=== PATIENT | female | born 1995 | race Caucasian/White ===

== ENCOUNTER 2018-06-17 20:32 | Emergency (ER) | payer SELFPAY ==
[2018-06-17 21:27] LABS: Urine Blood NEGATIVE (NEG); Urine Glucose NEGATIVE (NEG); Urine Protein 2+ (NEG); Urine Specific Gravity 1.015 (1.005-1.030)
[2018-06-17] MEDS ORDERED: IBUPROFEN 400 MG TAB ONE (21:40)
[2018-06-17 21:47] LABS: Absolute Lymphocytes (CBC) 0.5 K/uL (0.7-4.9); Absolute Monocytes 0.4 K/uL (0.1-1.3); Absolute Neutrophil 3.8 K/uL (1.8-8.0); Basophils % 0.5 % (0-1.3); Eosinophils % 0.7 % (0-4.4); Hematocrit 35.6 % (36.0-45.0); Lymphocytes % 10.6 % (15.3-44.8); MPV 8.3 fL (7.6-11.3); Monocytes % 8.5 % (3.3-12.3); RBC Red Blood Cell Count 4.65 M/uL (3.86-4.86)
[2018-06-17 21:47] LABS: Urine Appearance CLEAR; Urine Bilirubin NEGATIVE (NEG); Urine Blood NEGATIVE (NEG); Urine Color YELLOW; Urine Glucose NEGATIVE (NEG); Urine Protein 1+ (NEG); Urine Specific Gravity 1.025 (1.005-1.030); Urine Urobilinogen 0.2 mg/dL (0.2-1.0)
[2018-06-17 22:08] LABS: Urine Bacteria <20 /HPF (<20); Urine Microscopic Reflex ORDER UMIC; Urine RBC NONE SEEN /HPF (NONE SEEN)
[2018-06-17 22:09] LABS: Urine Culture Reflex Order NOT NEEDED; Urine Mucus 2+ /HPF (NONE SEEN)
--- NOTE | 2018-06-17 22:45 | ER ---
Nurse's Notes [facility] Name: Pamela Conway Age: 23 yrs Sex: Female : 1995 Arrival Date: 06/17/2018 Time: 20:33 Bed 24 Private MD: Diagnosis: Influenza A Presentation: 06/17 20:45 Presenting complaint: Patient states: headache, fever, cough X1 day. tylenol at 1700, ak1 no motrin. Transition of care: patient was not received from another setting of care. Onset of symptoms was June 16, 2018. Risk Assessment: Do you want to hurt yourself or someone else? Patient reports no desire to harm self or others. Initial Sepsis Screen: Does the patient meet any 2 criteria? No. Patient's initial sepsis screen is negative. Does the patient have a suspected source of infection? No. Patient's initial sepsis screen is negative. Care prior to arrival: None. 20:45 Method Of Arrival: Ambulatory ak1 20:45 Acuity: CYRUS 4 ak1 Triage Assessment: 20:46 General: Appears uncomfortable, ill, Behavior is calm, cooperative. Neuro: Level of ak1 Consciousness is awake, alert, obeys commands, Oriented to person, place, time, situation, Rapid Extractor Operator are equal bilaterally Moves all extremities. Gait is steady, Speech is normal. 20:47 Headache History: The patient has had previous headaches and this one is similar to ak1 previous episodes. Pain: Pain currently is 7 out of 10 on a pain scale. Pain began 1 day ago. Also complains of photophobia, sleeplessness. EENT: Reports nasal congestion. Cardiovascular: Rhythm is sinus tachycardia. Respiratory: Reports cough that is non-productive. GI: No signs and/or symptoms were reported involving the gastrointestinal system. : No signs and/or symptoms were reported regarding the genitourinary system. Derm: Parent/caregiver reports the patient having fever. Musculoskeletal: No signs and/or symptoms reported regarding the musculoskeletal system. 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 - Social history:: Smoking status: Patient/guardian denies using tobacco. - Ebola Screening: : No symptoms or risks identified at this time. Screenin:11 Abuse screen: Denies threats or abuse. Denies injuries from another. Nutritional aj1 screening: No deficits noted. Tuberculosis screening: No symptoms or risk factors identified. 23:05 Fall Risk None identified. aj1 Assessment: 21:08 General: Appears in no apparent distress. uncomfortable, ill, Behavior is calm, aj1 cooperative, appropriate for age. Pain: Complains of pain in face Pain does not radiate. Pain currently is 7 out of 10 on a pain scale. Neuro: Level of Consciousness is awake, alert, obeys commands, Oriented to person, place, time, situation, Reports headache. Cardiovascular: Heart tones S1 S2 present Patient's skin is warm and dry. Rhythm is sinus tachycardia. Respiratory: Reports cough that is non-productive, Airway is patent Respiratory effort is even, unlabored, Respiratory pattern is regular, symmetrical, Breath sounds with wheezes in left posterior lower lobe and right posterior lower lobe the patient has mild shortness of breath. GI: No signs and/or symptoms were reported involving the gastrointestinal system. : No signs and/or symptoms were reported regarding the genitourinary system. Derm: No signs and/or symptoms reported regarding the dermatologic system. Skin is pink, warm \T\ dry. normal. Musculoskeletal: No signs and/or symptoms reported regarding the musculoskeletal system. Circulation, motion, and sensation intact. 22:05 Reassessment: Patient appears in no apparent distress at this time. No changes from aj1 previously documented assessment. Patient and/or family updated on plan of care and expected duration. Pain level reassessed. Patient is alert, oriented x 3, equal unlabored respirations, skin warm/dry/pink. 23:06 Reassessment: Patient appears in no apparent distress at this time. No changes from aj1 previously documented assessment. Patient and/or family updated on plan of care and expected duration. Pain level reassessed. Patient is alert, oriented x 3, equal unlabored respirations, skin warm/dry/pink. Vital Signs: 20:46 BP 97 / 60; Pulse 135; Resp 20; Temp 102.4(O); Pulse Ox 98% on R/A; Weight 65.77 kg ak1 (R); Height 5 ft. 7 in. (170.18 cm) (R); Pain 7/10; 21:01 Pulse 115; Resp 15; Pulse Ox 100% on R/A; aj1 21:08 BP 124 / 76; aj1 22:05 BP 102 / 79; Pulse 122; Resp 19; Pulse Ox 99% on R/A; aj1 23:05 BP 112 / 73; Pulse 106; Resp 18; Temp 101.2; Pulse Ox 99% on R/A; aj1 20:46 Body Mass Index 22.71 (65.77 kg, 170.18 cm) ak1 ED Course: 20:33 Patient arrived in ED. am2 20:46 Triage completed. ak1 20:46 Arm band placed on Patient placed in an exam room, on a stretcher, Patient notified of ak1 wait time. 20:47 Patient has correct armband on for positive identification. ak1 20:52 Moris Montana MD is Attending Physician. pkl 21:01 Joan Hill RN is Primary Nurse. aj1 21:11 tar chaser on. Pulse ox on. NIBP on. aj1 21:11 No provider procedures requiring assistance completed. aj1 21:35 Inserted saline lock: 22 gauge in right antecubital area, using aseptic technique. Blood collected. 21:43 Initial lab(s) drawn, by pa, sent to lab. 21:45 Flu and/or RSV swab sent to lab. Strep swab sent to lab. gm 23:05 IV discontinued, intact, bleeding controlled, No redness/swelling at site. Pressure aj1 dressing applied. Administered Medications: 21:34 Drug: Motrin 400 mg Route: PO; aj1 23:04 Follow up: Response: No adverse reaction aj1 23:04 Drug: Tamiflu 75 mg Route: PO; aj1 23:04 Follow up: Response: No adverse reaction aj1 Outcome: 22:44 Discharge ordered by . pksajan 23:06 Discharged to home ambulatory. aj1 23:06 Condition: good 23:06 Discharge instructions given to patient, Instructed on discharge instructions, follow up and referral plans. medication usage, Demonstrated understanding of instructions, follow-up care, medications, Prescriptions given X 1. 23:06 Patient left the ED. aj1 Signatures: Joan Hill RN RN [facility] Moris Montana MD MD pkl Krenek, Amber, RN RN ak Cecilia Chauhan am2 Carol, Anabela gm
--- NOTE | 2018-06-17 22:45 | EDPHYS ---
Physician Documentation [facility] Name: Pamela Conway Age: 23 yrs Sex: Female : 1995 Arrival Date: 06/17/2018 Time: 20:33 Bed 24 Private MD: ED Physician Moris Montana HPI: 06/17 21:23 This 23 yrs old Female presents to ER via Ambulatory with complaints of pkl Fever, Asthma Exacerbation, Cough, Headache. 21:23 The patient reports fever, with an emergency department temperature of 102.4 degrees pkl Fahrenheit. Onset: The symptoms/episode began/occurred last night. Associated signs and symptoms: Pertinent positives: cough, with yellow sputum, headache, sore throat, bobyaches. 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 - Social history:: Smoking status: Patient/guardian denies using tobacco. - Ebola Screening: : No symptoms or risks identified at this time. ROS: 21:23 Eyes: Negative for injury, pain, redness, and discharge, ENT: Negative for injury, pkl pain, and discharge, Neck: Negative for injury, pain, and swelling, Cardiovascular: Negative for chest pain, palpitations, and edema. 21:23 Respiratory: Positive for cough, with yellow sputum. 21:23 Abdomen/GI: Negative for abdominal pain, nausea, vomiting, and diarrhea. 21:23 Back: Negative for acute changes. 21:23 : Negative for urinary symptoms. 21:23 MS/extremity: Negative for acute changes. 21:23 Skin: Negative for rash. 21:23 Neuro: Negative for altered mental status. Exam: 21:23 Head/Face: Normocephalic, atraumatic. Eyes: Pupils equal round and reactive to light, pkl extra-ocular motions intact. Lids and lashes normal. Conjunctiva and sclera are non-icteric and not injected. Cornea within normal limits. Periorbital areas with no swelling, redness, or edema. ENT: Nares patent. No nasal discharge, no septal abnormalities noted. Tympanic membranes are normal and external auditory canals are clear. Oropharynx with no redness, swelling, or masses, exudates, or evidence of obstruction, uvula midline. Mucous membranes moist. Neck: Trachea midline, no thyromegaly or masses palpated, and no cervical lymphadenopathy. Supple, full range of motion without nuchal rigidity, or vertebral point tenderness. No Meningismus. Chest/axilla: Normal chest wall appearance and motion. Nontender with no deformity. No lesions are appreciated. Cardiovascular: Regular rate and rhythm with a normal S1 and S2. No gallops, murmurs, or rubs. Normal PMI, no JVD. No pulse deficits. Respiratory: Lungs have equal breath sounds bilaterally, clear to auscultation and percussion. No rales, rhonchi or wheezes noted. No increased work of breathing, no retractions or nasal flaring. Abdomen/GI: Soft, non-tender, with normal bowel sounds. No distension or tympany. No guarding or rebound. No evidence of tenderness throughout. Back: No spinal tenderness. No costovertebral tenderness. Full range of motion. Skin: Warm, dry with normal turgor. Normal color with no rashes, no lesions, and no evidence of cellulitis. MS/ Extremity: Pulses equal, no cyanosis. Neurovascular intact. Full, normal range of motion. Neuro: Awake and alert, GCS 15, oriented to person, place, time, and situation. Cranial nerves II-XII grossly intact. Motor strength 5/5 in all extremities. Sensory grossly intact. Cerebellar exam normal. Normal gait. Vital Signs: 20:46 BP 97 / 60; Pulse 135; Resp 20; Temp 102.4(O); Pulse Ox 98% on R/A; Weight 65.77 kg ak1 (R); Height 5 ft. 7 in. (170.18 cm) (R); Pain 7/10; 21:01 Pulse 115; Resp 15; Pulse Ox 100% on R/A; aj1 21:08 BP 124 / 76; aj1 22:05 BP 102 / 79; Pulse 122; Resp 19; Pulse Ox 99% on R/A; aj1 23:05 BP 112 / 73; Pulse 106; Resp 18; Temp 101.2; Pulse Ox 99% on R/A; aj1 20:46 Body Mass Index 22.71 (65.77 kg, 170.18 cm) ak1 MDM: 20:52 Patient medically screened. pkl 22:43 Data reviewed: vital signs, nurses notes, lab test result(s). pkl 06/17 21:04 Order name: Urine Dipstick--Ancillary (enter results); Complete Time: 22:40 mw2 06/17 21:04 Order name: Urine --Ancillary (enter results); Complete Time: 22:40 mw2 06/17 21:22 Order name: CBC with Diff; Complete Time: 22:40 pkl 06/17 21:22 Order name: Flu; Complete Time: 22:40 pkl 06/17 21:22 Order name: Strep; Complete Time: 22:40 pkl 06/17 21:22 Order name: UA; Complete Time: 22:40 pkl 06/17 22:11 Order name: Throat Culture EDMS 06/17 22:12 Order name: Urine Microscopic Only EDMS Administered Medications: 21:34 Drug: Motrin 400 mg Route: PO; aj 23:04 Follow up: Response: No adverse reaction aj 23:04 Drug: Tamiflu 75 mg Route: PO; aj1 23:04 Follow up: Response: No adverse reaction aj1 Disposition: 06/17/18 22:44 Discharged to Home. Impression: Influenza A. - Condition is Stable. - Prescriptions for Tamiflu 75 mg Oral Capsule - take 1 tablet by ORAL route every 12 hours for 5 days; 10 tablet. - Medication Reconciliation Form, Thank You Letter, Antibiotic Education, Prescription Opioid Use form. - Follow up: Private Physician; When: 2 - 3 days; Reason: Re-evaluation by your physician. - Problem is new. - Symptoms have improved. Signatures: Dispatcher [employer] EDJoan Oviedo RN RN aj1 Moris Montana MD MD pkl Nara Peters RN RN ak1 Corrections: (The following items were deleted from the chart) 23:06 22:44 06/17/2018 22:44 Discharged to Home. Impression: Influenza A. Condition is aj1 Stable. Forms are Medication Reconciliation Form, Thank You Letter, Antibiotic Education, Prescription Opioid Use. Follow up: Private Physician; When: 2 - 3 days; Reason: Re-evaluation by your physician. Problem is new. Symptoms have improved. pkl
[2018-06-17] MEDS ORDERED: OSELTAMIVIR 75 MG CAP ONE (23:09)
== END 2018-06-17 23:06 | disposition home or self-care (01) ==
LOC: ER 20:32
DX: J09.X2 Influenza due to identified novel influenza A virus with other respiratory manifestations (principal)
CPT/HCPCS: 36415; 81003; 81015; 81025; 85025; 87070; 87081; 87804; 99284

== ENCOUNTER 2023-12-09 05:18 | Emergency (ER) | payer SELFPAY ==
--- OUTSIDE RECORDS SUMMARY | 2023-12-09 05:22 | XMS REPORT | Continuity of Care Document ---
Author Name Unknown Address [address] [facility] [address] [place] [address] [facility] thconnect Address [address] [facility] [address] [place] [address] Care Team Providers Care Sap Bw Architect Name Role Phone Ruben Mendez Bernabe Primary Care Physician [phone] DANDRE SHAFFER Attending Clinician Unavailable Dandre Shaffer MD Attending Clinician Larisa Webb Attending Clinician + LARISA STATON Attending Clinician Unavail able Doctor Unassigned, [place] Attending Clinician U OSCAR [place] Attending Clinician UnavailOscar Serrano Attending Clinician [phone] Payers Payer Name Policy Type Policy Number Effective Date Expirati on Date Source [facility]izz[facility] [id number] 2020 00[facility]00[facility]00 [facility] [id number] 2020 00:00:00 Problems Condition Name Condition Details Condition Category Status Onset Date Resolution Date Last Treatment Date Treating Clinician Comments Source Other general counseling and advice for contracept yen management Other general counseling and advice for contracept yen management Disease Active 3-08 00:00: 00 [facility] Nausea and vomiting during prior to 22 weeks gestation Nausea and vomiting during prior to 22 weeks gestation Disease Active 8-03 00:00: 00 [facility] Rubella non-immune status, antepartum Rubella non-immune status, antepartum Disease Active 12-21 00:00: 00 Overview: Formattin g of this note might be different from the original. Address in [facility]part[facility] m. [facility] Maternal varicella, non-immune Maternal varicella, non-immune Disease Active 12-21 00:00: 00 Overview: Formattin g of this note might be different from the original. Address in [facility] Supervisio n of high risk in first trimester Supervisio n of high risk in first trimester Disease Active 12-20 00:00: 00 [facility] Multiparit y Multiparit y Disease Active 12-20 00:00: 00 [facility] Overweight (BMI 25.0-29.9) Overweight (BMI 25.0-29.9) Disease Active 12-20 00:00: 00 [facility] History of multiple miscarriag es History of multiple miscarriag es Disease Active 12-20 00:00: 00 [facility] in first trimester with history of ectopic in first trimester with history of ectopic Disease Active 12-20 00:00: 00 [facility] S/P removal of right ovary S/P removal of right ovary Disease Active 12-20 00:00: 00 [facility] History of asthma History of asthma Disease Active 12-20 00:00: 00 [facility] History of section History of section Disease Active 12-20 00:00: 00 [facility] Allergies, Adverse Reactions, Alerts Allergy Name Allergy Type Status Severity Reaction(s) Onset Date Inactive Date Treating Clinician Comments Source hydrocod one DA Active [place] 2018-06 00:00: 00 [facility] acetamin ophen DA Active [place] 2018-06 00:00: 00 [facility] No Known Allergie s DA Active U 2018-06 0 00:00: 00 [facility] HYDROCOD ONE-ACET AMINOPHE N DRUG Active N/V 2017-06 00:00: 00 [facility] Hydrocod one-Acet aminophe n Propensi ty to adverse reaction s Active Nausea and/or Vomiting 2017-06 00:00: 00 [facility] No Known Allergie s DA Active U 2017-06 00:00: 00 [facility] Social History Social Habit Start Date Stop Date Quantity Comments Source [facility] Exposure to SARS-CoV-2 (event) 2022-08-30 00:00:00 2022-09-09 02:50:00 Not sure [facility] History of Social function 2022-08-22 00:00:00 2022-08-22 00:00:00 [facility] Tobacco use and exposure 2020-12-20 00:00:00 2020-12-20 00:00:00 Smokeless tobacco non-user [facility] Alcohol intake 2020-12-20 00:00:00 2020-12-20 00:00:00 Ex-drinker (finding) [facility] Sex Assigned At 1995 00:00:00 1995 00:00:00 [facility] Smoking Status Start Date Stop Date Source Never smoked tobacco [facility] Medications Ordered Medication Name Filled Medication Name Start Date Stop Date Current Medication? Ordering Clinician Indication Dosage Frequency Signature (SIG) Comments Components Source ondansetron (ZOFRAN-ODT ) disintegrat ing tablet 4 mg 09-09 09:45: 00 09-09 08:56 :00 No 4mg 4 mg, Oral, ONCE, 1 dose, On 09/09/22 at 0445, Routine [facility] levoFLOXaci n (LEVAQUIN) tablet 500 mg 09-09 09:00: 00 09-09 08:53 :00 No 500mg 500 mg, Oral, ONCE, 1 dose, On 09/09/22 at 0400, NEL
Re ason for Anti-Infec tive: Documented Infection< br>Documen manuela Infection Site: Urine
D uration of Therapy: Other (see Comments) [facility] phenazopyri dine (PYRIDIUM) tablet 200 mg 09-09 09:00: 00 09-09 08:05 :00 No 200mg 200 mg, Oral, ONCE, 1 dose, On 09/09/22 at 0400, Routine [facility] levoFLOXaci n (LEVAQUIN) 500 mg tablet 09-09 00:00: 00 Yes [id number] 500mg Take 1 tablet by mouth every 24 (twenty-fo ur) hours. [facility] phenazopyri dine 200 mg tablet 09-09 00:00: 00 Yes [id number] 200mg Take 1 tablet by mouth in the morning and 1 tablet at noon and 1 tablet in the evening. [facility] fluconazole (DIFLUCAN) 150 mg tablet 2020-06 0 00:00: 00 03-23 04:59 :00 No [id number] 150mg Take 1 tablet by mouth once now for 1 dose. [facility] vit 33-iron-fol ic-dha (SELECT-OB + DHA) 29 mg iron-1 mg -250 mg combo pack 01-17 00:00: 00 08-22 00:00 :00 No [id number] 1{packe t} Take 1 Packet by mouth daily. [facility] doxylamine- pyridoxine, vit B6, (DICLEGIS) 10-10 mg per tablet 01-17 00:00: 00 08-22 00:00 :00 No [id number] 2{tbl} Take 2 tablets by mouth at bedtime. [facility] Vital Signs Vital Name Observation Time Observation Value Comments S ource Systolic blood pressure 2022-09-09 07:49:00 133 mm[Hg] [facility] Diastolic blood pressure 2022-09-09 07:49:00 73 mm[Hg] [facility] Heart rate 2022-09-09 07:49:00 73 /min [facility] Body temperature 2022-09-09 07:49:00 36.89 [place] [facility] Respiratory rate 2022-09-09 07:49:00 16 /min [facility] Body height 2022-09-09 07:49:00 170.2 cm [facility] Body weight 2022-09-09 07:49:00 65.772 kg [facility] BMI 2022-09-09 07:49:00 22.71 kg/m2 [facility] Oxygen saturation in Arterial blood by Pulse oximetry 2022-09-09 07:49:00 99 /min [facility] Systolic blood pressure 2022-08-22 14:22:00 117 mm[Hg] [facility] Diastolic blood pressure 2022-08-22 14:22:00 75 mm[Hg] [facility] Heart rate 2022-08-22 14:22:00 70 /min [facility] Body temperature 2022-08-22 14:22:00 37 [place] [facility] Respiratory rate 2022-08-22 14:22:00 18 /min [facility] Body height 2022-08-22 14:22:00 170.2 cm [facility] Body weight 2022-08-22 14:22:00 69.31 kg [facility] BMI 2022-08-22 14:22:00 23.93 kg/m2 [facility] Procedures Procedure Date / Time Performed Performing Clinicia n Source POCT TEST 2022-09-09 08:02:00 Dandre Shaffer [facility] URINALYSIS 2022-09-09 07:54:00 Dandre Shaffer [facility] NOTICE OF PRIVACY PRACTICES 2022-09-09 07:45:26 Doctor Unassigned, [place] [facility] CONSENT/REFUSAL FOR DIAGNOSIS AND TREATMENT 2022-09-09 07:44:33 Doctor Unassigned, [place] [facility] POCT TEST 2022-08-22 14:28:00 Joni Staton [facility] ASSIGNMENT OF BENEFITS 2022-08-22 13:49:15 Docto r Unassigned, [place] [facility] Encounters Start Date/Time End Date/Time Encounter Type Admission Type Attending [facility] Care Facility Care Department Encounter ID Source 2022-09-09 02:55:00 2022-09-09 03:58:00 Emergency X JJ SHAFFERCLEO [facility] [[email or web address] ERT [id number] [facility] 2022-09-09 02:55:00 2022-09-09 03:58:00 Emergency Cassius Shaffertheodore S [facility] 1.840.114 350.1.13.10 4.2.7.2.686 [id number] [facility] 2022-08-22 08:00:00 2022-08-22 09:18:10 Office Visit Larisa Staton [facility] [[email or web address]] INTERPRETER AND TRANSLATOR [facility] 1.840.114 350.1.13.10 4.2.7.2.686 [id number] [facility] 2022-08-22 08:00:00 2022-08-22 09:18:10 Outpatient R LARISA STATON [facility] [id number] [facility] 2022-08-22 00:00:00 2022-08-22 00:00:00 Orders Only Doctor Unassigned, [place] [facility] 1.84.114 350.1.13.10 4.2.7.2.686 [id number] [facility] 2022-08-15 00:00:00 2022-08-15 00:00:00 Telephone Larisa Staton [facility] [[email or web address] INTERPRETER AND TRANSLATOR [facility] & CHILD [facility] 1.840.114 350.1.13.10 4.2.7.2.686 [id number] [facility] 2021-03-23 00:00:00 2021-03-23 00:00:00 Patient Secure Msg Larisa Staton Natalia [facility] [[email or web address]] INTERPRETER AND TRANSLATOR [facility] & CHILD [facility] 1.2840.114 350.1.13.10 4.2.7.2.686 [id number] [facility] 2021-03-22 00:00:00 2021-03-22 00:00:00 Telephone Brionna Larisa Fisher [facility] [[email or web address]] INTERPRETER AND TRANSLATOR [facility] 1.20.114 350.1.13.10 4.2.7.2.686 [id number] [facility] 2021 09:45:00 2021 09:45:00 Outpatient R LARISA STATON [facility] [id number] [facility] 2021 09:04:41 2021 09:19:41 Office Visit HaroonevonLarisa blair [facility] [[email or web address]] INTERPRETER AND TRANSLATOR [facility] CHILD [facility] 1.2.114 350.1.13.10 4.2.7.2.686 [id number] [facility] 2021-02-14 08:15:00 2021-02-14 08:15:00 Outpatient R OSCAR WOODS [facility] [id number] [facility] 2021-02-06 15:00:00 2021-02-06 15:00:00 Outpatient P [facility] [id number] [facility] 2021-01-17 08:09:32 2021-01-17 08:24:32 Routine Visit Oscar Woods [facility] [[email or web address]] INTERPRETER AND TRANSLATOR [facility] & CHILD [facility] 1.840.114 350.1.13.10 4.2.7.2.686 [id number] [facility] 2021-01-17 08:15:00 2021-01-17 08:15:00 Outpatient OSCAR BEE [facility] [id number] [facility] 2020-12-28 00:00:00 2020-12-28 00:00:00 Patient Secure Msg Robert Woodsmarie Arturo [facility] [[email or web address]] INTERPRETER AND TRANSLATOR [facility]NAL & CHILD [facility] 1.2.840.114 350.1.13.10 4.2.7.2.686 [id number] [facility] 2020-12-20 09:28:58 2020-12-20 10:42:35 Initial Visit Oscar Woods [facility] [[email or web address]] INTERPRETER AND TRANSLATOR [facility] & CHILD [facility] 1.2.840.114 350.1.13.10 4.2.7.2.686 [id number] [facility] 2020-12-20 09:45:00 2020-12-20 09:45:00 Outpatient OSCAR BEE [facility] [id number] [facility] 2020-12-20 00:00:00 2020-12-20 00:00:00 Orders Only Doctor Unassigned, [place] [facility] 1.2.840.114 350.1.13.10 4.2.7.2.686 [id number] [facility] Results Test Description Test Time Test Comments Results Result Co mments Source [id number] 14:28:00* Test Item Value Reference Range Interpretation Comme nts POCT PREG (test code = 1605) Negative On board controls acceptable with C Line (test code = 3574) Yes POCT PREG LOT # (test code = 3575) POCT PREG TEST DATE ( test code = 3576) [facility] [id number] 14:28:00* Test Item Value Reference Range Interpretation Comme nts POCT PREG (test code = 1605) Negative On board controls acceptable with C Line (test code = 3574) Yes POCT PREG LOT # (test code = 3575) POCT PREG TEST DATE ( test code = 3576) [facility] TU[facility],[id number] 18:27:00 RUN DATE: 03/26/19 [facility] PAGE 1 RUN TIME: 1108 Specimen Inquiry RUN USER: INTERFACE -------- ----PATIENT: HAY AWAD LOC: SOPHIE U #: [id number] AGE/SX: 24/F ROOM: [facility] RE03/24/19REGDR: Terese Morales MD : 94 BED: A DIS: 03/24/19 STATUS: DIS IN TLOC: SPEC #: [id number] RECD: 03/24/19 STATUS: RODRIGO RELizz #: [id number] ANIKET: 03/24/19- SUBM DR: Terese Morales MD ENTERED: 03/24/19-1126 SP TYPE: ROSETTA RAGINI DR: ORDERED: LEVEL II SURGIC CODES: W47999 - FALLOPIAN TUBE PROCEDURES: LEVEL II SURGIC (Incomplete) TISSUES: FALLOPIAN TUBE, NOS - RIGHT FALLOPIAN TUBE WITH ECTOPIC CLINICAL HISTORY 24 year old, right adnexal ectopic (kr) FINAL DIAGNOSIS Right fallopian tube, resection: - ectopic CPT code(s): 22684 cds/wpd 03/25/19 GROSS DESCRIPTION ANATOMIC SOURCE OF TISSUE (per Requisition): Right tube and right adnexal ectopic The specimen is received in a formalin-filled container, labeled with the patient's name and designated "right tube andright adnexal ectopic ". The specimen consists a 6.5 cm in length and 2.0 cm in diameter discontinuous fimbriated fallopian tube. The serosa is pink-purple and hyperemic. The lumen is dilated and occluded by thornton-pink soft tissue. There is no identifiable embryo or definite villous material. Also received in the same container is a 2.5 x 2.0 x 1.5 cm aggregate of dark red clotted blood. Pea Viner Mechanic sections are submitted labeled A1 and A2. wen/charmaine 03/24/19 @ 1309 Signed Conor Huitron 03/25/19 1827 END OF REPORT CHEMISTRY 7 PROFILE 2019-03-23 16:12:00* Test Item Value Reference Range Interpretation Comme nts SODIUM (test code = NA) 139 mEq/L 135-145 N POTASSIUM (test code = K) 3.6 mEq/L 3.5-5.0 N CHLORIDE (test code = CL) 103 mEq/L 100-115 N CARBON DIOXIDE (test code = CO2) 29 mEq/L 22-31 N ANION GAP (test code = GAP) 10.60 10-20 N GLUCOSE (test code = GLU) 78 mg/dL 65-110 N BLOOD UREA NITROGEN (test co de = BUN) 8 mg/dL 7-18 N GLOMERULAR FILTRATION RATE ( test code = GFR) 102 ml/min >60 N CREATININE (test code = CREAT) 0.7 mg/dL 0.5-1.0 N CALCIUM (test code = CA) 9.1 mg/dL 8.4-10.2 N SGOT/[id number] 16:12:00* Test Item Value Reference Range Interpretation Comme nts SGOT/AST (test code = AST) 15 units/L 15-37 N SGPT/[id number] 16:12:00* Test Item Value Reference Range Interpretation Comme nts SGPT/ALT (test code = ALT) 25 units/L 12-78 N - US TRANSVAGINAL W/[id number] 15:09:00Patient Name: HAY AWAD Unit No: [id number] EXAMS: CPT CODE: [id number] US TRANSVAGINAL W/PELVIS 13711 PELVIC ULTRASOUND, 03/23/2019: COMPARISON: None CLINICAL HISTORY: VAGINAL BLEEDING WITH TECHNIQUE: Transabdominal and endovaginal scanning was performed. FINDINGS: The uterus measures9.1 x 4.1 x 5.8 cm. The endometrial cavity is empty with a thickness of 13 mm. No intrauterine gestational sac is seen. No uterine fibroids were visualized. The right ovary measures 3.1 x 1.9 x 1.4 cm and appears normal. The left ovary measures 4.4 x 2.1 x 1.9 cm and contains a 1.9 cm corpus luteumcyst. There is a 1.8 x 2.1 x 1.8 cm ringlike solid structure in the right adnexa, adjacent and medial to the right ovary. This solid structure demonstrates vascular flow. This is suspicious for rightadnexal ectopic . Small amount of free fluid is present in the right adnexa and uqh-wo-upkdcimup of the pelvis. Prominent bowel loops are also seen in the right adnexa. CONCLUSION: 1. Emptyuterus. 2. 2.1 cm solid structure in the right adnexa, suspicious for right adnexal ectopic . 3. Small amount of free fluid in the right adnexa. Findings were discussed with Dr. Vickers at appro ximately 3:02 PM on March 23, 2019. FOR INTERNAL CODING PURPOSES ONLY RESULT CODE: CVR at 1509 Reported and signed by: Jono Dodd MD CC: Angie Vickers MD; Terese Morales MD Technologist: Ramona Green, [facility] Probe: [id number] Trnscrbd D/ (1509) t.SDR.AJ13 Orig Print D/T: S: 03/23/2019 (1517) [facility] NAME: HAY AWAD Radiology Department PHYS: Angie Pemberton MD [address] : 1995 AGE: 24 SEX: F [place] [address] LOC: .ERS PHONE #: [phone] EXAM DATE: 03/23/2019 STATUS: REG ER FAX #: [phone] RAD NO: Page 1 Signed Report Patient Name: DELMIWISAMJacqueline Pickard Unit No: [id number] EXAMS: CPT CODE: [id number] TRANSVAGINAL W/PELVIS 67720 (Continued) [facility] NAME: HAY AWAD Radiology Department PHYS: Angie Hassan MD [address] : 1995 AGE: 24 SEX: F [place] [address] LOC: F.ERS PHONE #: [phone] EXAM DATE: 03/23/2019 STATUS:JENI ER FAX #: [phone] RAD NO: Page 2 Signed Report- US PELVIS [id number] 15:09:00Patient Name: HAY AWAD Unit No: [id number] EXAMS: CPT CODE: [id number] US PELVIS COMPLETE 96946 PELVIC ULTRASOUND, 03/23/2019: COMPARISON: None CLINICAL HISTORY: VAGINAL BLEEDING WITH TECHNIQUE: Transabdominal and endovaginal scanning was performed. FINDINGS: The uterus measures 9.1 x4.1 x 5.8 cm. The endometrial cavity is empty with a thickness of 13 mm. No intrauterine gestational sac is seen. No uterine fibroids were visualized. The right ovary measures 3.1 x 1.9 x 1.4 cm and a ppears normal. The left ovary measures 4.4 x 2.1 x 1.9 cm and contains a 1.9 cm corpus luteum cyst.There is a 1.8 x 2.1 x 1.8 cm ringlike solid structure in the right adnexa, adjacent and medial to the right ovary. This solid structure demonstrates vascular flow. This is suspicious for right adnexal ectopic . Small amount of free fluid is present in the right adnexa and cul-de-sac region of the pelvis. Prominent bowel loops are also seen in the right adnexa. CONCLUSION: 1. Empty uterus. 2. 2.1 cm solid structure in the right adnexa, suspicious for right adnexal ectopic . 3.Small amount of free fluid in the right adnexa. Findings were discussed with Dr. Vickers at approximately 3:02 PM on March 23, 2019. FOR INTERNAL CODING PURPOSES ONLYRESULT CODE: CVR at 0729 Reported and signed by: Jono Dodd MD CC: Angie Vickers MD; Terese Morales MD Technologist: Ramona Tucker RDMS Probe: Trnscrbd D/ (8720) t.SDR.AJ13 Orig Print D/T: S: 03/23/2019 (1512) [facility] NAME: HAY AWAD Radiology Department PHYS: Angie Hassan MD[address] : 1995 AGE: 24 SEX: F [place], [place] [address] LOC: PattiERS PHONE #: [phone] EXAM DATE: 03/23/2019 STATUS: REG ER FAX #: [phone] RAD NO: Page 1 Signed Report Patient Name: HAY AWAD Unit No: [id number] EXAMS: CPT CODE: [id number] US PELVIS COMPLETE 61507 (Continued) [facility] NAME: HAY AWAD Radiology Department PHYS: Angie Hassan MD [address] : 1995 AGE: 24 SEX: F [place], [place] [address] LOC: [place]attiERS PHONE #: [phone] EXAM DATE: 03/23/2019 STATUS: REG ER FAX #: [phone] RAD NO: Page 2 Signed ReportHCG [id number] 14:26:00* Test Item Value Reference Range Interpretation Comme nts HCG SERUM (test code = HCG) 164 INTERPRETATION:V ALUES BETWEEN 15-20 milliInternational units/mL NEED TO BERETESTED WITHIN 48 HOURS. All units for these ranges are in milliInternationalunits/mL0-1 WK AFTER CONCEPTION 0-50 1-2 WKS AFTER CONCEPTION 40-3002-3 WKS AFTER CONCEPTION 100-1,0003-4 WKS AFTER CONCEPTION 500-6,0001-2 MONTHS AFTER CONCEPTION 5,000-200,0002-3 MONTHS AFTER CONCEPTION 10,000-100,0002ND TRIMESTER 3,000-50,0003RD TRIMESTER 1,000-50,000 SPECIMENS WITH AN HCG LEVEL FROM 0-6 milliInternationalunits/mL SHOULD BE CONSIDERED NEGATIVE CHEMISTRY 7 [id number] 14:16:00* Test Item Value Reference Range Interpretation Comme nts SODIUM (test code = NA) 139 mEq/L 135-145 N POTASSIUM (test code = K) 3.6 mEq/L 3.5-5.0 N CHLORIDE (test code = CL) 103 mEq/L 100-115 N CARBON DIOXIDE (test code = CO2) 29 mEq/L 22-31 N ANION GAP (test code = GAP) 10.60 10-20 N GLUCOSE (test code = GLU) 78 mg/dL 65-110 N BLOOD UREA NITROGEN (test co de = BUN) 8 mg/dL 7-18 N GLOMERULAR FILTRATION RATE ( test code = GFR) 102 ml/min >60 N CREATININE (test code = CREAT) 0.7 mg/dL 0.5-1.0 N CALCIUM (test code = CA) 9.1 mg/dL 8.4-10.2 N UA RFLX MICR CULT IF [id number] 14:08:00* Test Item Value Reference Range Interpretation Comme nts UA COLOR (test code = COLU) YELLOW YELLOW UA APPEARANCE (test code = APPU) Slightly-Cloudy CLEAR UA GLUCOSE DIPSTICK (test code = DGLUU) NEGATIVE NEG UA BILIRUBIN DIPSTICK (test code = BILU) NEGATIVE NEG UA KETONE DIPSTICK (test cod e = KETU) NEGATIVE NEG UA SPECIFIC GRAVITY (test code = SGU) 1.023 1.001-1.035 N UA BLOOD DIPSTICK (test code = MANDY) 3+ NEG A UA PH DIPSTICK (test code = JONATHAN) 5.0 5-9 UA PROTEIN DIPSTICK (test code = PROU) NEGATIVE NEG UA UROBILINIOGEN DIPSTICK (test code = URO) NEGATIVE mg/dL NEG UA NITRITE DIPSTICK (test code = REGULO) NEG NEG UA LEUKOCYTE ESTERASE DIPSTICK (test code = LEUU) NEG NEG UA WBC (test code = WBCU) 3-5 #/hpf NONE SEEN A UA RBC (test code = RBCU) 3-5 #/hpf NONE SEEN A UA EPITHELIAL CELLS (test code = EPIU) MODERATE #/HPF RARE-FEW A UA BACTERIA (test code = BACU) RARE /HPF RARE-FEW UA MUCUS (test code = MUCU) 3+ NONE SEEN Indication for culture: Suprapubic PainCBC W/AUTO [id number] 14:01:00* Test Item Value Reference Range Interpretation Comme nts WHITE BLOOD CELL (test code = WBC) 7.8 K/mm3 6.6-12.1 N RED BLOOD CELL (test code = RBC) 4.36 M/mm3 3.45-5.01 N HEMOGLOBIN (test code = HGB) 11.9 g/dL 10.7-13.9 N HEMATOCRIT (test code = HCT) 37.1 % 32.1-42.1 N MEAN CELL VOLUME (test code = MCV) 85 fL 84.1-94.8 N MEAN CELL HGB (test code = MCH) 27.3 pg 27-35 N MEAN CELL HGB CONCETRATION ( test code = MCHC) 32.1 gm/dL 32.2-34.1 L RED CELL DISTRIBUTION WIDTH (test code = RDW) 14.6 % 12.4-16.5 N PLATELET COUNT (test code = PLT) 532 K/mm3 133-385 H MEAN PLATELET VOLUME (test c ode = MPV) 9.6 fl 9.1-12.7 N NEUTROPHIL % (test code = NT%) 62.6 % 56.5-79.4 N LYMPHOCYTE % (test code = LY%) 29.4 % 14.3-34.3 N MONOCYTE % (test code = MO%) 5.8 % 5.1-10.4 N EOSINOPHIL % (test code = EO%) 0.9 % 0.1-3.0 N BASOPHIL % (test code = BA%) 1.0 % 0.1-1.0 N NEUTROPHIL # (test code = NT#) 4.9 K/mm3 LYMPHOCYTE # (test code = LY#) 2.3 K/mm3 MONOCYTE # (test code = MO#) 0.5 K/mm3 EOSINOPHIL # (test code = EO#) 0.07 K/mm3 BASOPHIL # (test code = BA#) 0.1 K/mm3 RBC MORPHOLOGY REQUIRED (lauren t code = RBCM) NORMAL NORMAL PLATELET MORPHOLOGY REQUIRED (test code = PLTMR) NORMAL NORMAL Notes Date/Time Note Provider Source 2019-04-27 17:39:00 [id number] IktZK0EtC9s7oe9mMZuufCmpPi/hV wlFvHirWeMRZHhcMaB98fvvPbw+uvGJgx57647-07-36W61:3 9:00 [facility] ([facility])Discharge SummaryREPORT#:[id number] REPORT STATUS: SignedDATE:04/27/19 TIME: 1739 PATIENT: HAY AWAD UNIT #: [id number]#: [id number] ROOM/BED: [facility]-ADOB: [birth year] AGE: 24 SEX: F ATTEND: Terese Morales MDA AUTHOR: Terese Moraels MD * ALL edits or amendments must be made on the electronic/computer document * PCP PCPDischarge to: home General InformationDate of admission:Observation Start Date: 03/23/19Date of admission: 03/24/19 Date of discharge: 04/24/19Admission diagnosis:ectopic Discharge diagnosis:same, s/p lsc right salpingectomyHospital course:admitted for observation of R adnexal ectopic after administration of methotrxateOn HD#1 c/o acute onset of right lower quadrant painright salpingectomy performed for ruptured ectopic patient d/kiarn home same day Pt. condition on discharge: stable Med Rec PCPPCP:PCP: Terese Morales MD Med RecDischarge meds:Start taking the following new medications:traMADol (ULTRAM) 50 MG TAB 100 MILLIGRAM ORAL EVERY 6 HOURS NEEDED. as needed for pain Qty = 30 No Refills IBUPROFEN (MOTRIN) 600 MG TAB 600 MILLIGRAM ORAL EVERY 6 HOURS NEEDED. as needed for pain Qty = 40 Refills = 1 ObjectiveVS/I OLast Documented: Result Date Time Pulse Ox 99 03/24 1621 B/P 117/72 03/24 1621 B/P Mean 87.2 03/24 1621 Temp 98.2 03/24 1621 Pulse 109 03/24 162 Resp 18 03/24 162 O2 Delivery Room air 03/24 1235 O2 Flow Rate 2.769049 03/24 1200 Patient Weight Weight (lb): 150Weight (oz): 2.16Weight (kg): 68.100 General appearance: alert, awake, orientedWound/incision: Location:abdominal incision well approximated Discharge InstructionsDiet: regularWeight monitoring: Not RequiredActivity: as tolerated, no bending, no lifting, no twisting, non-strenuousF/U labs/procedures/tests:FOLLOW UP WITH DR MORALES INSTRUCTEDNotify provider of these s/s:FEVER 100.4 OR ABOVE CHILLS NAUSEA VOMITING DIARRHEA UNRELIEVED PAIN BRIGHT RED VAGINAL BLEEDING SATURATING 1 PAD IN LESS THAN 1 HOUR FOUL SMELLING DISCHARGE FROM VAGINA OR INCISIONS CHEST PAIN/DIZZINES LEG PAIN SWELLINGReturn to work/school: No Follow-up AppointmentsPCP: PCP: Terese Morales MD Follow up timeframe: In 2-3 weeksAttending Physician: Attending Physician: Terese Morales MD at 1742 RPT #:[id number] OF REPORT DSDischarge cjqholf3899-02-31J22:39:00F.[id number] ailable for patient hmpcJHXWAEXFFMASEK4690-60-28A81:42:52 [facility] 2019-03-24 11:13:00 [id number] eaLemAU9vPKat/EZ76Mk/fA5AI/Z7 CdUZVLC+QtRylc9WeDh0HKNNeedWt04n6f8794-29-41Z45:1 3:00 [facility] [place] [place] ([facility])Full Op NoteREPORT#:[id number] REPORT STATUS: SignedDATE:03/24/19 TIME: 1113 PATIENT: HAY AWAD UNIT #: [id number]#: [id number] [address] [birth year] AGE: 24 SEX: F ATTEND: Terese Morales MDADM AUTHOR: Terese Morales MD * ALL edits or amendments must be made on the electronic/computer document * Operative ReportORM Surgeries: Surgery Date and Time: 03/24/2019 1100 Primary Procedure: THREE PUNCTURE LAPAROSCOPIC ECTOPIC Start date: 03/24/19Start time: 1000Pre-procedure diagnosis:ruptured right adnexal ectopicPost-procedure diagnosis:sameProcedures performed:laparoscopic right salpingectomy, evacuation of hemoperitoneum, repair of cervical lacerationTechnique/Procedure:abovePrimary Surgeon: Sigifredo Khannaistant(s): Gerardo Elmore MDAnesthesia: general anesthesiaIndications:ruptured ectopic Operative findings:small cervical laceration at site of tenaculum placement, hemostatic following repair; normal appearing liver, small bowel, uterus, bilateral ovaries, normal left fallopian tube, ruptured ectopic noted at distal portion of rightfallopian tube. hemostasis noted upon procedure completion Complications: noneEstimated blood loss in ml's: 5 mL from procedure; 100 mL hemoperitoneum evacuatedSpecimens removed/altered: right fallopian tube and ectoopic Drain(s)/tube(s): noneImplant(s): noneFluids:1.5LUrine output:100 cc clearApproach: laparoscopicDisposition: plan to D/C home, return to floorCounts: Sponge count: correct Instrument count: correct Needle count: correctWound class: clean Free Text Op NotesFree Text Op Notes:indication: patient was admitted yesterday evening from the ED after she presented with vaginal bleeding following following positive test two days prior. She was hemodynamically stable with no abdominal pain at the time ofadmission. She was counseled about her options for management including medical vs surgical management. She elected to proceed with medical management. Methotrexate was administered and she was admitted for observation overnight. This morning at 0715 she complained of acute onset abdominal pain. Abdomen was tender with guarding on exam. She was diagnosed with ruptured ectopic. I recommended surgical management. Surgical risks were discussed and she was takenurgently to the OR. Procedure:The patient was taken to the OR where she was placed in dorsal lithotomy position, prepped and drapped in the usual sterile fashion. time out was completed. The brisa uterine manipulator was placed. During this process the anterior cervix was lacerated with a tenaculum. Mild bleeding from the site of laceration was noted. Valenzuela catheter was placed. Attention was then turned to the abdomen where a 5 mm incision was made in the base of the umbilicus. The veress needle was inserted into the peritoneal cavity. intraperitoneal placementwas confirmed with hangind drop test. opening pressure with insufflation of CO2 gas was 4 mmHg.A 5mm trocar was then inserted. 2 additional trocars were inserted in bilateral lower quadrants under direct visualization. The patient was then placed in trendelenberg. The right fallopian tube and ectopic were elevated out of the pelvis. The fallopian tube and enclosed ectopic were sequentially cauterized and cut until the fallopian tube was free from uterus and mesosalpinx. care was taken to avoid the uretet, which was visible throughout the duration of the procedure.The 10 cm endocatch bad was inserted through the 11 mm LLQ port and the ectopic and fallopian tube were removed through the skin incision. The port was reinserted under direct visualization The pelvis was irrigated and hemostasis noted. intraabdominal pressure was decreased and hemostasis persisted. The LLQ skin incision was closed with the nancy irena device, with no palpable defect noted after closure. All instruments and ports were removed from the abdomen. The skin incisions were closed in a subcuticular fashion with 3.0 monocryl. The valenzuela catheter and brisa uterine manipulator were removed and the cervix examined. Bleeding was noted from anterior lip cervical laceration. The was sutures in a running locked fashion with 2.0 vicryl. hemostasis was then noted.patient tolerated the procedure well.sponge, lap and instrument counts were correct x2. at 1311 RPT #:[id number] OF REPORT OPOperative ubnorg9224-06-03B42:13:00F.[id number] ilable for patient mrsnRHNEOQXAFCMVJO9271-11-82V56:11:33 [facility] 2019-03-24 08:58:00 [id number] U6plBc1TLY5w7ezehFA83uLMba1ZT xR6gArw/Icq3JaUmBP2/9fI2YHvGSGD08m8065-39-86Z60:5 8:00 [facility] ([facility])Clinical NoteREPORT#:[id number] REPORT STATUS: SignedDATE:03/24/19 TIME: 857 PATIENT: HAY AWAD UNIT #: [id number]#: [id number] ROOM[facility]BED: [facility]-ADOB: [birth year] AGE: 24 SEX: F ATTEND: Terese Morales [facility] AUTHOR: Terese Morales MD * ALL edits or amendments must be made on the electronic/computer document * Clinical NoteNote:HD#2 admitted for obs overnight with right adnexal ectopic. Hemodynamically stable with no evidence of rupture yesterday. Pt reported acute onset of abdominal pain this morning at 0715. Vital Signs: Date Time Temp Pulse Resp B/P B/P Pulse O2 O2 Flow FiO2 Mean Ox Delivery Rate 03/24 718 98.6 75 18 108/70 82.6 100 03/24 0432 98.6 76 16 103/67 79.0 99 Room air 03/23 2348 98.4 81 16 105/67 79.4 98 Room air 03/23 1648 98.4 92 16 115/74 87.7 100 Room air 03/23 1612 98.2 85 16 127/60 82 99 Room air 03/23 1300 98.2 85 18 130/72 91 100 Room air Gen: appears uncomfortableCV: regular ratepulm: unlabored respirationsabd: tender to palpation in right lower quadrant with voluntary guardingext non edema, nontenderGU: scant vaginal bleeding with ruptured ectopic proceed with emergent laparoscopic right salpingectomy discussed procedure risks with patient and including but not limited to infection, bleeding, damage to bowel, bladder, vessels, ureters, possible laparotomyall questions answered.Proceed to OR at 0903 RPT #:[id number] OF REPORT CLClinical xpdc0189-65-19R87:58:00F.[id number] able for patient orymAJDRBDSZGOGQFA4176-39-87T62:03:43 [facility] 2019-03-24 08:58:00 [id number]+ gIZBHceudoQFeFnrGGDTioL4qO+jh lpiHmXPqbt1YRkEYYOOl6PEG0eY25p1O+R8793-17-37T06:5 8:00 [facility] ([facility])Clinical NoteREPORT#:[id number] REPORT STATUS: SignedDATE:03/24/19 TIME: 0858 PATIENT: HAY AWAD UNIT #: [id number]#: [id number] [address] [birth year] AGE: 24 SEX: F ATTEND: Terese Morales MDADM AUTHOR: Terese Morales MD * ALL edits or amendments must be made on the electronic/computer document * See AddendumClinical NoteNote:HD#2 admitted for obs overnight with right adnexal ectopic. Hemodynamically stable with no evidence of rupture yesterday. Pt reported acute onset of abdominal pain this morning at 0715. Vital Signs: Date Time Temp Pulse Resp B/P B/P Pulse O2 O2 Flow FiO2 Mean Ox Delivery Rate 03/24 718 98.6 75 18 108/70 82.6 100 03/24 0432 98.6 76 16 103/67 79.0 99 Room air 03/23 2348 98.4 81 16 105/67 79.4 98 Room air 03/23 1648 98.4 92 16 115/74 87.7 100 Room air 03/23 1612 98.2 85 16 127/60 82 99 Room air 03/23 1300 98.2 85 18 130/72 91 100 Room air Gen: appears uncomfortableCV: regular ratepulm: unlabored respirationsabd: tender to palpation in right lower quadrant with voluntary guardingext non edema, nontenderGU: scant vaginal bleeding with ruptured ectopic proceed with emergent laparoscopic right salpingectomy discussed procedure risks with patient and including but not limited to infection, bleeding, damage to bowel, bladder, vessels, ureters, possible laparotomyall questions answered.Proceed to OR at 0903 Addendum 1: 03/24/19 0911 by Terese Morales MD emergency procedure request placed at 0805 at 0912 RPT #:[id number] OF REPORT CLClinical ovef3881-98-08I12:58:00F.[id number] able for patient fmumIVWYOZDMIAQJEV8348-91-57J27:12:34 [facility] 2019-03-23 19:03:00 [id number] ru0brtqdCNUVX5prQ2jIyN7e2VO4X u/pwRsjJSK4fT5XTThua5RZeEzG11Veqe66544-06-28U21:0 3:00 [facility] ([facility])History Physical - AdultREPORT#:[id number] REPORT STATUS: SignedDATE:03/23/19 TIME: 1902 PATIENT: HAY AWAD UNIT #: [id number]#: [id number] ROOM/BED: 2622-ADOB: [birth year] AGE: 24 SEX: F ATTEND: Terese Morales MDADM AUTHOR: Terese Morales MD * ALL edits or amendments must be made on the electronic/computer document * History of Present Illness HPIChief complaint:vaginal bleedingHPI:pt presented to ED was vaginal bleeding and light midline pelvic cramping that 'feels similar to menstrual cramps.' She had a positive urine test thisweekend. I was contacted by ED doc following US finding of right adnexal ectopic . At the time of my evaluation several hours after the patient presented to the ED, she reports decreased bleeding and intermittent mild uterine cramps. denies dizziness, right lower quadrant pain, nausea. HistorySmoking status for patients 13 years old or older: Never Smoker Medication/Allergy-Vaccine HxHome Medications:No Known Home Medications Discontinued MedicationsDOCUSATE SODIUM (COLACE) 200 MG PO BEDTIME Discontinued reason: Patient stopped takingIBUPROFEN (MOTRIN) 800 MG PO Q8H PRN PRN MILD PAIN (SCORE 1 - 3) Discontinued reason: Patient stopped taking Allergies:Coded Allergies:No Known Allergies (03/23/19) Physical ExamVS/I OVital Signs: Date Time Temp Pulse Resp B/P B/P Pulse O2 O2 Flow FiO2 Mean Ox Delivery Rate 03/23 1648 98.4 92 16 115/74 87.7 100 Room air 03/23 1612 98.2 85 16 127/60 82 99 Room air 03/23 1300 98.2 85 18 130/72 91 100 Room air Patient Weight Weight (lb): Weight (oz): Weight (kg): 68.100 General appearance: alert, awake, oriented, no acute distress, pleasant, conversationalCardiovascular: regular rateRespiratory: no tenderness, aerating well, symmetric expansionAbdomen/GI: soft, non-tender, no guarding, no rebound, no distention, mild tenderness to deep palpation in RLQ. no rebound or guardingExtremities: moves all, no edema-all extremitiesNeuro/CLUSTER BORE OPERATOR: alert, oriented X 3 ResultsFindings/Data:Laboratory Tests: 03/23 1341 Chemistry Sodium (135 - 145 mEq/L) 139 Potassium (3.5 - 5.0 mEq/L) 3.6 Chloride (100 - 115 mEq/L) 103 Carbon Dioxide (22 - 31 mEq/L) 29 Anion Gap (10 - 20) 10.60 BUN (7 - 18 mg/dL) 8 Creatinine (0.5 - 1.0 mg/dL) 0.7 Glomerular Filtr Rate (>60 ml/min) 102 Glucose (65 - 110 mg/dL) 78 Calcium (8.4 - 10.2 mg/dL) 9.1 AST (15 - 37 units/L) 15 ALT (12 - 78 units/L) 25 Hematology WBC (6.6 - 12.1 K/mm3) 7.8 RBC (3.45 - 5.01 M/mm3) 4.36 Hgb (10.7 - 13.9 g/dL) 11.9 Hct (32.1 - 42.1 %) 37.1 MCV (84.1 - 94.8 fL) 85 MCH (27 - 35 pg) 27.3 MCHC (32.2 - 34.1 gm/dL) 32.1 L RDW (12.4 - 16.5 %) 14.6 Plt Count (133 - 385 K/mm3) 532 H MPV (9.1 - 12.7 fl) 9.6 Neut % (Auto) (56.5 - 79.4 %) 62.6 Lymph % (Auto) (14.3 - 34.3 %) 29.4 Edmunds % (Auto) (5.1 - 10.4 %) 5.8 Eos % (Auto) (0.1 - 3.0 %) 0.9 Baso % (Auto) (0.1 - 1.0 %) 1.0 Neut # (Auto) (K/mm3) 4.9 Lymph # (Auto) (K/mm3) 2.3 Edmunds # (Auto) (K/mm3) 0.5 Eos # (Auto) (K/mm3) 0.07 Baso # (Auto) (K/mm3) 0.1 Miscellaneous Maternal Serum HCG 164 Urines Urine Color (YELLOW) YELLOW Urine Appearance (CLEAR) Slightly-Cloudy Urine pH (5 - 9) 5.0 Ur Specific [place] (1.001 - 1.035) 1.023 Urine Protein (NEG) NEGATIVE Urine Glucose (UA) (NEG) NEGATIVE Urine Ketones (NEG) NEGATIVE Urine Blood (NEG) 3+ H Urine Nitrite (NEG) NEG Urine Bilirubin (NEG) NEGATIVE Urine Urobilinogen (NEG mg/dL) NEGATIVE Ur Leukocyte Esterase (NEG) NEG Urine RBC (NONE SEEN #/hpf) 3-5 H Urine WBC (NONE SEEN #/hpf) 3-5 H Ur Epithelial Cells (RARE - FEW #/HPF) MODERATE H Urine Bacteria (RARE - FEW /HPF) RARE Urine Mucus (NONE SEEN) 3+ Pelvic US shows 2.1 cm solid structure in right adnexa, suspicious for right ectopic , small free fluid in pelvisRadiology data:Laboratory Tests: 03/23 1341 Chemistry Sodium (135 - 145 mEq/L) 139 Potassium (3.5 - 5.0 mEq/L) 3.6 Chloride (100 - 115 mEq/L) 103 Carbon Dioxide (22 - 31 mEq/L) 29 Anion Gap (10 - 20) 10.60 BUN (7 - 18 mg/dL) 8 Creatinine (0.5 - 1.0 mg/dL) 0.7 Glomerular Filtr Rate (>60 ml/min) 102 Glucose (65 - 110 mg/dL) 78 Calcium (8.4 - 10.2 mg/dL) 9.1 AST (15 - 37 units/L) 15 ALT (12 - 78 units/L) 25 Hematology WBC (6.6 - 12.1 K/mm3) 7.8 RBC (3.45 - 5.01 M/mm3) 4.36 Hgb (10.7 - 13.9 g/dL) 11.9 Hct (32.1 - 42.1 %) 37.1 MCV (84.1 - 94.8 fL) 85 MCH (27 - 35 pg) 27.3 MCHC (32.2 - 34.1 gm/dL) 32.1 L RDW (12.4 - 16.5 %) 14.6 Plt Count (133 - 385 K/mm3) 532 H MPV (9.1 - 12.7 fl) 9.6 Neut % (Auto) (56.5 - 79.4 %) 62.6 Lymph % (Auto) (14.3 - 34.3 %) 29.4 Edmunds % (Auto) (5.1 - 10.4 %) 5.8 Eos % (Auto) (0.1 - 3.0 %) 0.9 Baso % (Auto) (0.1 - 1.0 %) 1.0 Neut # (Auto) (K/mm3) 4.9 Lymph # (Auto) (K/mm3) 2.3 Edmunds # (Auto) (K/mm3) 0.5 Eos # (Auto) (K/mm3) 0.07 Baso # (Auto) (K/mm3) 0.1 Miscellaneous Maternal Serum HCG 164 Urines Urine Color (YELLOW) YELLOW Urine Appearance (CLEAR) Slightly-Cloudy Urine pH (5 - 9) 5.0 Ur Specific [place] (1.001 - 1.035) 1.023 Urine Protein (NEG) NEGATIVE Urine Glucose (UA) (NEG) NEGATIVE Urine Ketones (NEG) NEGATIVE Urine Blood (NEG) 3+ H Urine Nitrite (NEG) NEG Urine Bilirubin (NEG) NEGATIVE Urine Urobilinogen (NEG mg/dL) NEGATIVE Ur Leukocyte Esterase (NEG) NEG Urine RBC (NONE SEEN #/hpf) 3-5 H Urine WBC (NONE SEEN #/hpf) 3-5 H Ur Epithelial Cells (RARE - FEW #/HPF) MODERATE H Urine Bacteria (RARE - FEW /HPF) RARE Urine Mucus (NONE SEEN) 3+ Diagnosis, Assessment Plan Free Text DxA P NotesFree Text DxA P Notes:24 yo with right adnexal ectopic , exam findings not consistentwith ruptured ectopicsmall amount of free fluid noted on pelvic ultrasound. In context of normal abdominal exam and hemodynamically stable patient, I feel that this is a nonspecific finding.Discussed management options with patient and spouse. These include medical management with methotrexate or surgical management with laparoscopic salpingectomy. pt does desire fertility. She strongly desires to avoid surgery if possible. discussed risks of methotrexate and common side effects. discussed risk of treatment failure and possibility of ectopic rupture during course of treatment with methotrexate, which may become a life-threatening emergency requiring surgery.discussed importance of post-treatment follow up for serial HCG monitoring to ensure treatment success. Patient agreesall of her questions were answered. plan to admit for monitoring overnight at 2104 RPT #:[id number] OF REPORT HPHistory and physical jjtwlxygzgd6141-83-19K12:03:00F.[id number] AVAvailable for patient gkpbROEGXOKJJWREJH7416-02-57P72:04:35 [facility] 2019-03-23 13:29:00 [id number] jfVEGDf9c0A5XxtkhLjltp3dtjFlL MLjFpbm6PmTJAz6iWR4g/mxYMbC5kwBtsy9040-15-87N78:2 9:00 [facility] ([facility])EMERGENCY PROVIDER REPORTREPORT#:[id number] REPORT STATUS: SignedDATE:03/23/19 TIME: 1329 PATIENT: HAY AWAD UNIT #: [id number]#: [id number] ROOM/BED: 2622AAGE: 24 SEX: F PCP PHYS: Terese Moraels MDSERVICE AUTHOR: Angie Vickers MD * ALL edits or amendments must be made on the electronic/computer document * HPI-Preg Under 20 Weeks GeneralConfirmed Patient YesPatient Type New patientInitial Greet Date/Time 03/23/19 1305 PresentationChief Complaint Vaginal bleeding Free Text HPI NotesFree Text HPI Notes24 yo lady wo sig pmh presents to the ed with VB x yesterday. Pt states shehad (+) at home UPT x 2 d. LMP 02/07/19. Associated abd cramping "like menstrualcramps". Rated 3/10. no alleviating or worsening symptoms. VB is brown and not enough to fill pad stating "looks sticky...little tiny clots". Follows with Dr. Morales, INTERPRETER AND TRANSLATOR. Review of Systems ROS StatementsAll systems rev neg except as marked. Free Text ROS NotesFree Text ROS Notes-ConstitutionalDenies: Fever. Chills.-GIDenies: Nausea, Vomiting. Abdominal pain. Diarrhea constipation-GUDenies: Dysuria, Hematuria,+VB-MusculoskeletalDenies: Extremity pain, Ext Swelling-SkinDenies: Rash, Swelling.-NeurologicDenies: Numbness, Tingling.-EyesDenies:visual loss, blurred vision-RespiratoryDenies: Shortness of breath. dyspnea on exertion-CardiovascularDenies: Chest pain, Dyspnea on exertion, Edema.-Allergy:Denies Hives, Itching Past Medical History - AdultStated Complaint SPOTTING/CRAMPINGAllergiesCoded Allergies:acetaminophen (From VICODIN) (Mild, vomiting 03/24/19)hydrocodone (Mild, vomiting 03/24/19) Home MedicationsDiscontinued ScriptsIBUPROFEN (MOTRIN) 800 MG PO Q8H PRN PRN MILD PAIN (SCORE 1 - 3) IBUPROFEN (MOTRIN) 800 MG PO Q8H PRN PRN MILD PAIN (SCORE 1 - 3) #14 TAB Prov: 04/13/18 DC: 03/23/19 1305 Patient stopped takingDOCUSATE SODIUM (COLACE) 200 MG PO BEDTIME DOCUSATE SODIUM (COLACE) 200 MG PO BEDTIME #10 CAP Prov: 04/13/18 DC: 03/23/19 1305 Patient stopped taking Review of Nursing Notes Rev avail, and agreeSmoking status for patients 13 years old or older: Never Smoker Physical Exam Vital SignsVital SignsFirst Documented: Result Date Time Pulse Ox 100 03/23 1300 B/P 130/72 03/23 1300 B/P Mean 91 03/23 1300 O2 Delivery Room air 03/23 1300 Temp 36.8 03/23 1300 Pulse 85 03/23 1300 Resp 18 03/23 1300 Last Documented: Result Date Time Pulse Ox 100 03/23 1300 B/P 130/72 03/23 1300 B/P Mean 91 03/23 1300 O2 Delivery Room air 03/23 1300 Temp 36.8 03/23 1300 Pulse 85 03/23 1300 Resp 18 03/23 1300 Review of Vital Signs Reviewed Focused PEAbdomen/GI Abdomen/GI Soft, Non-tender, No guarding, No reboundGenitourinary General Civil Division Deputy Sheriff present Female Genitourinary External genitalia NL, No cervical motion tend, Os closed Text/Dict Notesbrown spotting R-sided adnexal tenderness Free Text PE NotesFree Text PE NotesGeneral/Const General/Const Awake, AlertMS Head Head Atraumatic, NormocephalicEyes Eyes Atraumatic, No scleral icterusMS Neck Neck Atraumatic, No meningismus, Full range of motionneck easily mobileResp/Chest no labored bs, no audible wheezing Cardiovascular Cardiovascular no cyanosis, Ext: moving all 4 ext, no swelling/ cyanosis noted on UE BlSkin Skin no apparent rashes, Dry, IntactNeurologic Neurologic Oriented X3, Speech NL, Gait NLENTAtraumatic, Airway patent, Mucous membranes moist, Ext aud canal NL, Gums/dentition NL, Interpretation Diagnostics Lab Results InterpretationResultsLaboratory Tests 03/23/19 1341:[Embedded Image Not Available]Laboratory Tests: 03/23 1341 Chemistry Sodium (135 - 145 mEq/L) 139 Potassium (3.5 - 5.0 mEq/L) 3.6 Chloride (100 - 115 mEq/L) 103 Carbon Dioxide (22 - 31 mEq/L) 29 Anion Gap (10 - 20) 10.60 BUN (7 - 18 mg/dL) 8 Creatinine (0.5 - 1.0 mg/dL) 0.7 Glomerular Filtr Rate (>60 ml/min) 102 Glucose (65 - 110 mg/dL) 78 Calcium (8.4 - 10.2 mg/dL) 9.1 AST (15 - 37 units/L) 15 ALT (12 - 78 units/L) 25 Hematology WBC (6.6 - 12.1 K/mm3) 7.8 RBC (3.45 - 5.01 M/mm3) 4.36 Hgb (10.7 - 13.9 g/dL) 11.9 Hct (32.1 - 42.1 %) 37.1 MCV (84.1 - 94.8 fL) 85 MCH (27 - 35 pg) 27.3 MCHC (32.2 - 34.1 gm/dL) 32.1 L RDW (12.4 - 16.5 %) 14.6 Plt Count (133 - 385 K/mm3) 532 H MPV (9.1 - 12.7 fl) 9.6 Neut % (Auto) (56.5 - 79.4 %) 62.6 Lymph % (Auto) (14.3 - 34.3 %) 29.4 Edmunds % (Auto) (5.1 - 10.4 %) 5.8 Eos % (Auto) (0.1 - 3.0 %) 0.9 Baso % (Auto) (0.1 - 1.0 %) 1.0 Neut # (Auto) (K/mm3) 4.9 Lymph # (Auto) (K/mm3) 2.3 Edmunds # (Auto) (K/mm3) 0.5 Eos # (Auto) (K/mm3) 0.07 Baso # (Auto) (K/mm3) 0.1 Miscellaneous Maternal Serum HCG 164 Urines Urine Color (YELLOW) YELLOW Urine Appearance (CLEAR) Slightly-Cloudy Urine pH (5 - 9) 5.0 Ur Specific [place] (1.001 - 1.035) 1.023 Urine Protein (NEG) NEGATIVE Urine Glucose (UA) (NEG) NEGATIVE Urine Ketones (NEG) NEGATIVE Urine Blood (NEG) 3+ H Urine Nitrite (NEG) NEG Urine Bilirubin (NEG) NEGATIVE Urine Urobilinogen (NEG mg/dL) NEGATIVE Ur Leukocyte Esterase (NEG) NEG Urine RBC (NONE SEEN #/hpf) 3-5 H Urine WBC (NONE SEEN #/hpf) 3-5 H Ur Epithelial Cells (RARE - FEW #/HPF) MODERATE H Urine Bacteria (RARE - FEW /HPF) RARE Urine Mucus (NONE SEEN) 3+ Lab Imaging StatementLaboratory radiographic studies reviewed and considered in the medical decision-making. Point of Care TestingPulse Oximetry Pulse Ox % 100 On: Room air Interpretation Interpreted by me, Pulse oximetry normal Time 1300 Re-Evaluation MDM Free Text MDM NotesFree Text MDM Frgnx86j/o F with HPI and PE as above: VSS 1. labs2. US3. re-assess 1502: Radiologist called to discuss US results. Discussed case with Dr. Morales who accepts pt. Pt agrees with plan. ED CourseMedication(s) OrderedMedication(s) Ordered:Antineoplastic Agents Sig/Sharee Start time Last Medication Dose Route Stop Time Status Admin Methotrexate Sodium 90 MG X1ED STA 03/23 1622 DC 03/23 Device 1 EA IM 03/23 1957 1722 ConsultationConsultation Referral/Consult Name Terese Morales MD Hvac Maintenance Technician Called INTERPRETER AND TRANSLATOR Requested Call Time 151 Requested Call Date 03/23/19 Call Returned Call returned Call Returned Time 151 Call Returned Date 03/23/19 Patient Discharge Departure Vital Signs/ConditionVital SignsFirst Documented: Result Date Time Pulse Ox 100 10 1300 B/P 130/72 03/23 1300 B/P Mean 91 03/23 1300 O2 Delivery Room air 03/23 1300 Temp 36.8 03/23 1300 Pulse 85 03/23 1300 Resp 18 03/23 1300 Last Documented: Result Date Time Pulse Ox 100 03/23 1300 B/P 130/72 03/23 1300 B/P Mean 91 03/23 1300 O2 Delivery Room air 03/23 1300 Temp 36.8 03/23 1300 Pulse 85 03/23 1300 Resp 18 03/23 1300 All vital signs available at the time of this entry have been reviewed. Condition Stable Clinical ImpressionClinical ImpressionPrimary Impression: Ectopic pregnancySecondary Impressions: Vaginal bleeding Disposition DecisionAdmit Admit Physician Name Terese Morales MD Admit Physician INTERPRETER AND TRANSLATOR Request Time 1518 Request Date 03/23/19 )( Admission Accepts Yes )( Accepted Time 1518 )( Accepted Date 03/23/19 Call Information will see patient, agrees with eval, agrees with plan Discharge/Care PlanCounseled Regarding Diagnosis, Lab results, Imaging studies, Need for admission Admit NoteI have spoken with the patient and/or caregivers. I have explained the patient'scondition, diagnoses and treatment plan based on the information available to meat this time. I have answered the patient's and/or caregiver's questions and addressed any concerns. The patient and/or caregivers have as good an understanding of the patient's diagnosis, condition and treatment plan as can beexpected at this point. The patient has been stabilized within the capability ofthe emergency department. The patient will be transported for further care and management or will be moved to an observation or inpatient service. I have communicated with the staff or medical practitioner taking over this patient's care. Quality MeasuresUS in Preg w/AP/VB Trans-abd/vag US done, Preg location documentedRH- Risk Fet Bld Exposure Rhogam ordered, No risk blood expos at 1202RPT #:[id number] OF REPORTEDEmerspringwoods behavioral [facility] department [id number] nhable for patient [id number]:16 [facility]
[2023-12-09] MEDS ORDERED: ONDANSETRON 4 MG/2 ML VIAL ONE (05:47)
[2023-12-09] MEDS ORDERED: KETOROLAC 30 MG/ML INJ ONE (05:47)
[2023-12-09 06:27] LABS: Absolute Basophils 0.1 K/uL (0-0.5); Absolute Eosinophils 0.1 K/uL (0-0.5); Absolute Lymphocytes (CBC) 1.7 K/uL (0.7-4.9); Absolute Monocytes 0.6 K/uL (0.1-1.3); Absolute Neutrophil 5.9 K/uL (1.8-8.0); Eosinophils % 1.3 % (0-4.4); Hematocrit 37.9 % (36.0-45.0); Hemoglobin 12.6 g/dL (12.0-15.0); Lymphocytes % 20.2 % (15.3-44.8); MCH 28.1 pg (27.0-35.0); MCHC 33.2 g/dL (32.0-36.0); MCV 84.6 fL (80-100); MPV 7.6 fL (7.6-11.3); Monocytes % 7.1 % (3.3-12.3); Neutrophils % 70.4 % (41.7-73.7); Platelets 383 thou/uL (152-406); RBC Red Blood Cell Count 4.48 M/uL (3.86-4.86); Red Cell Distribution Width 14.1 % (12.1-15.2)
[2023-12-09 06:41] LABS: Specific Gravity 1.022 (1.005-1.030)
[2023-12-09 06:42] LABS: Specific Gravity 1.022 (1.005-1.030); Sqamous Epithelial <5 /HPF (None Seen); Urine Bacteria None Seen /HPF (<20); Urine Bilirubin NEGATIVE (Negative); Urine Blood Trace (Negative); Urine Clarity Clear (Clear); Urine Color Light-Yellow (Yellow); Urine Culture Reflex Order NOT NEEDED; Urine Glucose NEGATIVE (Negative); Urine Ketones NEGATIVE (Negative); Urine Microscopic Reflex YN ORDER UMIC; Urine Mucus Slight /HPF (None Seen); Urine Nitrite NEGATIVE (Negative); Urine Protein NEGATIVE (Negative); Urine RBC <5 /HPF (None Seen); Urine Urobilinogen Normal (Normal); Urine WBC <5 /HPF (<5)
[2023-12-09 06:47] LABS: Albumin 3.7 g/dL (3.4-5.0); Albumin/Globulin Ratio 0.9 (1.1-1.8); Anion Gap 7.7 mEq/L (5.0-15.0); Bilirubin Total 0.2 mg/dL (0.2-1.0); Globulin 3.9 g/dL (2.3-3.5); Potassium 3.7 mEq/L (3.5-5.1); Protein, Total 7.6 g/dL (6.4-8.2)
--- NOTE | 2023-12-09 09:02 | ER ---
Nurse's Notes [facility] Name: Pamela Conway Age: 28 yrs Sex: Female : 1995 Arrival Date: 12/09/2023 Time: 05:18 Bed 18 Private MD: Diagnosis: Endometriosis, unspecified Presentation: 12/08 05:27 Chief complaint: Patient states: I have endometriosis and every month whenever I am ha1 about to get my cycle I get N/V, and cramping but this time it is intolerable. I have N/V, abdominal cramping, and headache. 05:27 Coronavirus screen: Vaccine status: Patient reports being unvaccinated. Ebola Screen: ha1 No symptoms or risks identified at this time. Initial Sepsis Screen: Does the patient meet any 2 criteria? No. Patient's initial sepsis screen is negative. Does the patient have a suspected source of infection? No. Patient's initial sepsis screen is negative. Risk Assessment: Do you want to hurt yourself or someone else? Patient reports no desire to harm self or others. Onset of symptoms was December 09, 2023. 05:27 Method Of Arrival: Ambulatory ha1 05:27 Acuity: CYRUS 3 ha1 Triage Assessment: 05:27 Headache History: The patient has had previous headaches and this one is more severe ha1 than previous episodes. General: Appears uncomfortable, Behavior is calm, cooperative. Pain: Complains of pain in pelvis Pain does not radiate. Pain currently is 8 out of 10 on a pain scale. Quality of pain is described as crampy, Pain began 1 day ago. Is continuous, Also complains of no other associated symptoms. Neuro: Level of Consciousness is awake, alert, obeys commands, Oriented to person, place, time, situation. Cardiovascular: Capillary refill < 3 seconds Patient's skin is warm and dry. Respiratory: Airway is patent Respiratory effort is even, unlabored, Respiratory pattern is regular, symmetrical. GI: Abdomen is flat, non-distended, Reports nausea, vomiting, abdominal cramping. Derm: Skin is pink, warm \T\ dry. Musculoskeletal: Circulation, motion, and sensation intact. Range of motion: intact in all extremities. 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 - Infectious Disease History:: Denies. - Social history:: Smoking status: Patient denies any tobacco usage or history of. Screenin:43 [facility] ED Fall Risk Assessment (Adult) History of falling in the last 3 months, ha1 including since admission No falls in past 3 months (0 pts) Confusion or Disorientation No (0 pts) Intoxicated or Sedated No (0 pts) Impaired Gait No (0 pts) Mobility Assist Device Used No (0 pt) Altered Elimination No (0 pt) Score/Fall Risk Level 0 - 2 = Low Risk Oriented to surroundings, Maintained a safe environment, Educated pt \T\ family on fall prevention, incl call for assistance when getting out of bed, Hourly rounding (assess needs \T\ fall precautionary measures) done. Abuse screen: Denies threats or abuse. Denies injuries from another. Nutritional screening: No deficits noted. Tuberculosis screening: No symptoms or risk factors identified. Assessment: 05:27 Reassessment: see triage assessment. ha1 06:19 Reassessment: Patient and/or family updated on plan of care and expected duration. Pain ha1 level reassessed. Patient is alert, oriented x 3, equal unlabored respirations, skin warm/dry/pink. 07:15 Reassessment: Patient appears in no apparent distress at this time. Patient and/or ph family updated on plan of care and expected duration. Pain level reassessed. Patient is alert, oriented x 3, equal unlabored respirations, skin warm/dry/pink. Patient states feeling better. Vital Signs: 05:27 BP 115 / 77; Pulse 91; Resp 17 S; Temp 98.2; Pulse Ox 98% on R/A; Weight 80.29 kg; ha1 Height 5 ft. 7 in. ; 06:19 BP 119 / 74; Pulse 90; Resp 17 S; Pulse Ox 100% on R/A; ha1 07:15 BP 112 / 72; Pulse 86; Resp 18; Temp 97.5; Pulse Ox 98% on R/A; ph 05:27 Body Mass Index 27.72 (80.29 kg, 170.18 cm) 1 ED Course: 05:23 Patient arrived in ED. gm2 05:24 Nolan Graves MD is Attending Physician. ec2 05:27 Patient has correct armband on for positive identification. Bed in low position. Call ha1 light in reach. Side rails up X 1. 05:46 Triage completed. ha1 06:00 Inserted saline lock: 20 gauge in right antecubital area, using aseptic technique. ha1 Blood collected. 06:17 Kary Vivas, RN is Primary Nurse. ha1 07:16 Arm band placed on. ph 07:16 No provider procedures requiring assistance completed. IV discontinued, intact, ph bleeding controlled, No redness/swelling at site. Pressure dressing applied. Administered Medications: 06:05 Drug: Ondansetron IVP 4 mg IVP once; over 2 minutes Route: IVP; Site: right antecubital;ha1 06:07 Drug: TORadol - Ketorolac IVP 15 mg IVP once Route: IVP; Site: right antecubital; 1 Medication: 05:44 VIS not applicable for this client. ha1 Outcome: 07:01 Discharge ordered by . ec2 07:16 Discharged to home ambulatory, ph 07:16 Condition: good 07:16 Discharge instructions given to patient, Instructed on discharge instructions, follow up and referral plans. medication usage, Demonstrated understanding of instructions, follow-up care, medications, Prescriptions given X 2, 07:16 Patient left the ED. ph Signatures: Loraine Corey RN RN Kary Vivas RN RN [facility] Nolan Graves MD MD 2 Piedad Mirza [facility]
--- NOTE | 2023-12-09 09:02 | EDPHYS ---
Physician Documentation [facility] Name: Pamela Conway Age: 28 yrs Sex: Female : 1995 Arrival Date: 12/09/2023 Time: 05:18 Bed 18 Private MD: ED Physician Nolan Graves HPI: 12/08 05:47 This 28 yrs old Female presents to ER via Ambulatory with complaints of Headache, ec2 Abdominal Cramping, Nausea/Vomiting. 05:47 Patient arrives today for evaluation of lower abdominal cramping. Reports that she has ec2 a history of endometriosis. Patient reports that she is having significant pain, states that she had taken some Tylenol with minimal alleviation in symptoms. Patient reports some nausea as well. Patient reports no diarrheal symptoms, no urinary complaints. Patient reports previous history of ectopic , status post oophorectomy, salpingectomy, also had a history of a .. 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 - Infectious Disease History:: Denies. - Social history:: Smoking status: Patient denies any tobacco usage or history of. ROS: 05:47 Constitutional: as per hpi ec2 Exam: 05:47 Constitutional: No acute distress ec2 Vital Signs: 05:27 BP 115 / 77; Pulse 91; Resp 17 S; Temp 98.2; Pulse Ox 98% on R/A; Weight 80.29 kg; ha1 Height 5 ft. 7 in. ; 06:19 BP 119 / 74; Pulse 90; Resp 17 S; Pulse Ox 100% on R/A; ha1 07:15 BP 112 / 72; Pulse 86; Resp 18; Temp 97.5; Pulse Ox 98% on R/A; ph 05:27 Body Mass Index 27.72 (80.29 kg, 170.18 cm) ha1 MDM: 05:24 Patient medically screened. ec2 07:02 Data reviewed: vital signs. ec2 07:02 ED course: Patient arrives today for evaluation of lower abdominal pain. Examination ec2 remarkable for nontoxic but was otherwise in no acute distress with a reassuring examination. I obtained lab works which was grossly unrevealing, reassuring CBC, urine noninfectious, negative for , after given Toradol and Zofran patient reports improvement in symptoms. Will discharge her home and have her up with gynecology. Return precautions given.. 12/08 06:25 Order name: Comprehensive Metabolic Panel; Complete Time: 06:59 EDMS 12/08 06:25 Order name: Lipase; Complete Time: 06:59 EDMS 12/08 06:25 Order name: CBC with Automated Diff; Complete Time: 06:59 EDMS 12/08 06:37 Order name: Test, Urine; Complete Time: 06:59 EDMS 12/08 06:37 Order name: Urinalysis w/ reflexes; Complete Time: 06:59 EDMS 12/08 05:42 Order name: IV Saline Lock; Complete Time: 06:17 ec2 12/08 05:42 Order name: Labs collected and sent; Complete Time: 06:17 ec2 Administered Medications: 06:05 Drug: Ondansetron IVP 4 mg IVP once; over 2 minutes Route: IVP; Site: right antecubital;1 06:07 Drug: TORadol - Ketorolac IVP 15 mg IVP once Route: IVP; Site: right antecubital; 1 Disposition Summary: 12/09/23 07:01 Discharge Ordered Notes: Location: Home ec2 Condition: Stable ec2 Diagnosis - Endometriosis, unspecified ec2 Followup: ec2 - With: Private Physician - When: - Reason: Re-evaluation by your physician Discharge Instructions: - Discharge Summary Sheet ec2 - Endometriosis ec2 Forms: - Work release form vc1 - Medication Reconciliation Form ec2 - Antibiotic Education ec2 - Prescription Opioid Use ec2 - Patient Portal Instructions ec2 - Leadership Thank You Letter ec2 Prescriptions: - acetaminophen-codeine 300-15 mg Oral tablet - take 1 tablet ORAL route every 8 hours; 15 tablet; Refills: 0, Product ec2 Selection Permitted - Zofran 4 mg Oral Tablet - take 1 tablet ORAL route every 12 hours As needed; 20 tablet; Refills: 0, ec2 Product Selection Permitted Signatures: Dispatcher [employer] Kary Lawler RN RN 1 Graves, Nolan, MD MD ec2
[2023-12-09 17:27] VITALS: BP 112/72; TEMP 97.5; O2SAT 98
== END 2023-12-09 07:16 | disposition home or self-care (01) ==
LOC: ER 05:18
DX: N80.9 Endometriosis, unspecified (principal)
CPT/HCPCS: 36415; 80053; 81001; 81025; 83690; 85025; J2405